=== PATIENT | female | born 1995 | race African-American/Black ===

== ENCOUNTER 2016-08-10 22:58 | Emergency (ER) | payer SELFPAY ==
[~2016-08-10] VITALS: Ht 162.6 cm; Wt 89.1 kg
[~2016-08-10 22:58] MED LIST: AMOXICILLIN 50500 MG PO; CEFTIN500 MG PO; CIPRO 500MG TA500 MG PO; DOXYCYCLINE 10100 MG PO; ELIMITE TOP; FLAGYL500 MG PO; HIBICLENS4% TP; NO HOME MEDICATIONS; NORCO 325 MG-51 TAB PO; NORCO 325 MG-7.1 TAB PO; PERCOCET 325 MG1 TA2 PO; SEROQUEL 2525 MG/TAB PO; ULTRAM 50MG TAB50 MG PO; VOLTAREN 75 DR75 MG PO; ZANAFLEX2 MG PO; ZOLOFT 100MG100 MG PO
[2016-08-10 23:00] VITALS: BP 131/83; TEMP 97.6
[2016-08-10 23:40] LABS: PH 6 (5-8); SQUAMOUS EPITHELIAL 20-50 /hpf; URINE APPEARANCE Cloudy; URINE BACTERIA Rare /hpf; URINE BILIRUBIN Negative (NEGATIVE); URINE BLOOD Negative (NEGATIVE); URINE COLOR Yellow; URINE GLUCOSE Negative (NEGATIVE); URINE KETONE Negative (NEGATIVE); URINE UROBILINOGEN Negative (NEGATIVE)
[2016-08-10] MEDS ORDERED: CEFTIN 250250 MG/TAB PO (23:47)
[2016-08-10] MEDS ORDERED: NORCO 325 MG-51 TAB PO (23:47)
[2016-08-11 00:02] VITALS: PULSE 78
== END 2016-08-11 00:03 | disposition home or self-care (01) ==
LOC: COL.ER 22:58
PROVIDERS: Physician Assistant
DX: N39.0 Urinary tract infection, site not specified (principal); M54.5 Low back pain

== ENCOUNTER 2016-08-21 22:11 | Emergency (ER) | payer SELFPAY ==
[~2016-08-21] VITALS: Ht 162.6 cm; Wt 85.6 kg
[~2016-08-21 22:11] MED LIST changes: +CEFTIN 250250 MG/TAB PO
[2016-08-21 22:14] VITALS: TEMP 98.6
[2016-08-21 23:11] VITALS: BP 100/65; PULSE 100
== END 2016-08-21 23:15 | disposition home or self-care (01) ==
LOC: COL.ER 22:11
DX: S60.222A Contusion of left hand, initial encounter (principal); S60.512A Abrasion of left hand, initial encounter; W22.8XXA Striking against or struck by other objects, initial encounter

== ENCOUNTER 2017-11-14 19:42 | Emergency (ER) | payer BC ==
[2017-11-14 19:44] VITALS: TEMP 98.2
[2017-11-14] MEDS ORDERED: ATIVAN 1MG T1 MG/TAB PO (20:07)
[2017-11-14 20:39] LABS: BASO % 0.3 % (0.0-2.0); EOS # 0.2 (0.0-0.7); EOS % 2.5 % (0-4.0); GRAN # 5.6 (1.4-6.5); GRAN % 58.3 % (42.2-75.2); HEMOGLOBIN 12.6 g/dl (12.5-16.0); LYMPH # 3.1 (1.2-3.4); LYMPH % 32.4 % (20.0-51.0); MEAN CELL VOLUME 84 fl (80.0-100.0); MEAN CORPUSCULAR HEMOGLOBIN 29 pg (27.0-31.0); MEAN CORPUSCULAR HGB CONC 34 g/dl (33.0-37.0); MEAN PLATELET VOLUME 8.8 fl (7.4-10.4); MONO # 0.6 (0.1-0.6); MONO % 6.3 % (1.7-9.3); PLATELET COUNT 327 K/mm3 (130-400); RED BLOOD COUNT 4.35 M/mm3 (4.10-5.30)
[2017-11-14 20:47] LABS: HEMATOCRIT 36.7 % (37.0-47.0)
[2017-11-14 20:52] LABS: ALANINE AMINOTRANSFERASE 28 U/L (9-52); ALBUMIN 3.6 gm/dL (3.5-5.0); ALKALINE PHOSPHATASE 67 U/L (50-136); ANION GAP 9 mmol/L (7-16); AST,SGOT 21 U/L (15-37); BILIRUBIN,TOTAL 0.3 mg/dL (0.0-1.0); BLOOD UREA NITROGEN 10 mg/dL (7-17); CALCIUM 8.8 mg/dL (8.4-10.2); CARBON DIOXIDE 28 mmol/L (22-30); CHLORIDE 102 mmol/L (98-107); CREATININE, serum 0.59 mg/dL (0.52-1.25); GLUCOSE 101 mg/dL (74-106); POTASSIUM 3.6 mmol/L (3.4-5.0); SODIUM 139 mmol/L (137-145); TOTAL PROTEIN 7.6 gm/dL (6.4-8.2)
[2017-11-14 20:53] LABS: COLLECTION METHOD CLEAN CATCH
[2017-11-14 21:03] LABS: TROPONIN-I < 0.012 ng/mL (0.000-0.034)
[2017-11-14 21:06] LABS: MUCOUS Present /lpf; PH 5 (5-8); SQUAMOUS EPITHELIAL 20-50 /hpf; URINE APPEARANCE Cloudy; URINE BACTERIA None Seen /hpf; URINE BILIRUBIN Negative (NEGATIVE); URINE BLOOD 3+ (NEGATIVE); URINE COLOR Yellow; URINE GLUCOSE Negative (NEGATIVE); URINE KETONE Negative (NEGATIVE); URINE LEUKOCYTE ESTERASE 2+ (NEGATIVE); URINE NITRATE Negative (NEGATIVE); URINE PROTEIN(semi-quant) Negative (NEGATIVE); URINE UROBILINOGEN Negative (NEGATIVE)
[2017-11-14 21:21] LABS: TRICYCLIC ANTIDEPRESS URINE NEGATIVE
[2017-11-14 21:44] VITALS: BP 109/57; PULSE 68
== END 2017-11-14 21:45 | disposition home or self-care (01) ==
LOC: COL.ER 19:42
PROVIDERS: Emergency Medicine
DX: M54.9 Dorsalgia, unspecified (principal); F17.210 Nicotine dependence, cigarettes, uncomplicated; Z88.2 Allergy status to sulfonamides

== ENCOUNTER 2018-12-24 10:20 | Emergency (ER) | payer SELFPAY ==
[~2018-12-24] VITALS: Ht 162.6 cm; Wt 104.5 kg
[~2018-12-24 10:20] MED LIST changes: +ATIVAN 1MG T1 MG/TAB PO
[2018-12-24 10:25] VITALS: TEMP 97.1
[2018-12-24 12:27] VITALS: BP 112/89; PULSE 90
== END 2018-12-24 12:29 | disposition home or self-care (01) ==
LOC: COL.ER 10:20
DX: S06.0X9A Concussion with loss of consciousness of unspecified duration, initial encounter (principal); S00.93XA Contusion of unspecified part of head, initial encounter; F31.9 Bipolar disorder, unspecified; F43.10 Post-traumatic stress disorder, unspecified; Z88.8 Allergy status to other drugs, medicaments and biological substances; F17.210 Nicotine dependence, cigarettes, uncomplicated; Y04.8XXA Assault by other bodily force, initial encounter; Y92.410 Unspecified street and highway as the place of occurrence of the external cause

== ENCOUNTER 2019-03-20 08:29 | Emergency (ER) | payer SELFPAY ==
[~2019-03-20] VITALS: Ht 162.6 cm; Wt 90.9 kg
[2019-03-20 09:39] LABS: COLLECTION METHOD CLEAN CATCH
[2019-03-20 09:44] LABS: BASO % 0.3 % (0.0-2.0); EOS # 0.2 (0.0-0.7); EOS % 2.3 % (0-4.0); GRAN # 7.5 (1.4-6.5); GRAN % 75.3 % (42.2-75.2); HEMATOCRIT 42.2 % (37.0-47.0); HEMOGLOBIN 14.4 g/dl (12.5-16.0); LYMPH # 1.7 (1.2-3.4); LYMPH % 16.9 % (20.0-51.0); MEAN CELL VOLUME 85 fl (80.0-100.0); MEAN CORPUSCULAR HEMOGLOBIN 29 pg (27.0-31.0); MEAN CORPUSCULAR HGB CONC 34 g/dl (33.0-37.0); MEAN PLATELET VOLUME 8.9 fl (7.4-10.4); MONO # 0.5 (0.1-0.6); PLATELET COUNT 283 K/mm3 (130-400); RED BLOOD COUNT 4.94 M/mm3 (4.10-5.30); REDCELL DISTRIBUTION WIDTH-CV 13.4 % (11.5-14.5)
[2019-03-20 09:54] LABS: PH 5 (5-8); SQUAMOUS EPITHELIAL 0-2 /hpf; URINE APPEARANCE Clear; URINE BACTERIA None Seen /hpf; URINE BILIRUBIN Negative (NEGATIVE); URINE BLOOD Negative (NEGATIVE); URINE COLOR Yellow; URINE GLUCOSE Negative (NEGATIVE); URINE KETONE Negative (NEGATIVE); URINE LEUKOCYTE ESTERASE 2+ (NEGATIVE); URINE NITRATE Negative (NEGATIVE); URINE PROTEIN(semi-quant) Negative (NEGATIVE); URINE UROBILINOGEN Negative (NEGATIVE)
[2019-03-20 10:00] LABS: ALANINE AMINOTRANSFERASE 19 U/L (9-52); ALBUMIN 4.1 gm/dL (3.5-5.0); ALKALINE PHOSPHATASE 70 U/L (50-136); ANION GAP 8 mmol/L (7-16); AST,SGOT 27 U/L (15-37); BILIRUBIN,TOTAL 0.3 mg/dL (0.0-1.0); BLOOD UREA NITROGEN 12 mg/dL (7-17); CALCIUM 8.8 mg/dL (8.4-10.2); CARBON DIOXIDE 26 mmol/L (22-30); CHLORIDE 106 mmol/L (98-107); CREATININE, serum 0.63 (0.52-1.25); GLUCOSE 89 mg/dL (74-106); POTASSIUM 4.3 mmol/L (3.4-5.0); SODIUM 140 mmol/L (137-145); TOTAL PROTEIN 7.9 gm/dL (6.4-8.2)
[2019-03-20 10:01] LABS: TRICYCLIC ANTIDEPRESS URINE NEGATIVE
[2019-03-20 10:17] LABS: ACETAMINOPHEN < 10 ug/mL (10-30)
[2019-03-20 10:18] LABS: ALCOHOL(ethanol),MEDICAL < 10 mg/dL; SALICYLATE < 1.0 mg/dL
[2019-03-20] MEDS ORDERED: MACROBID 1100 MG/CAP PO (10:27)
[2019-03-20 10:30] LABS: TSH w REFLEX 0.608 uIU/mL (0.465-4.680)
[2019-03-20 12:46] VITALS: BP 108/68; PULSE 78; TEMP 97.4
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
== END 2019-03-20 13:00 | disposition home or self-care (01) ==
LOC: COL.ER 08:29
PROVIDERS: Emergency Medicine
DX: R45.851 Suicidal ideations (principal); N39.0 Urinary tract infection, site not specified; F60.3 Borderline personality disorder; F31.9 Bipolar disorder, unspecified; Z91.5 Personal history of self-harm